=== PATIENT | male | born 1960 | race Caucasian/White ===

== ENCOUNTER 2017-05-30 13:38 | Emergency (ER) | payer OTHER, BC ==
--- NOTE | 2017-05-30 15:23 | RAD ---
Indication: Tender RIGHT mid foot. Question Lisfranc injury or injury at the base of the fifth metatarsal. No preceding injury. Comparison: No relevant prior exams available on the [facility] for comparison. Technique: AP, lateral, and oblique views RIGHT foot. Bilateral foot weightbearing AP view obtained. Report: The RIGHT foot demonstrates normal articular alignment including at the interval between the medial cuneiform and the base of the second metatarsal corresponding with the Lisfranc ligament interval. No cortical disruption or suspicious trabecular irregularity to suggest fracture. No significant arthropathic change evident. Unremarkable soft tissue contours. IMPRESSION: Normal radiographic series of the RIGHT foot including bilateral AP weightbearing views to facilitate assessment for mid foot sprain.
[2017-05-30 15:51] VITALS: BP 150/97
--- NOTE | 2017-05-30 17:41 | UC ---
Lazaro Ceja Alfonso, scribed for Ellen Engle DO on 05/30/17 at 1444 . Lower Extremity/Ankle HPI - HPI Summary HPI Summary: This patient is a 56 year old M presenting to [facility] with a chief complaint of right mid foot pain since a few days ago, worse since waking up this morning. He states it felt like it was strained and its like a bone issue. The patient rates the aching pain 8/10 in severity. Symptoms aggravated by touch and ambulation. Symptoms alleviated by rest. Patient denies recent trauma. 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 He often wears steel toed boots. - History of Current Complaint Chief Complaint: UCLowerExtremity Stated Complaint: FOOT PAIN Time Seen by Provider: 05/30/17 14:37 Hx Obtained From: Patient Onset/Duration: Gradual Onset, Lasting Days - few, Worse Since - morning Severity Currently: Severe Pain Intensity: 8 Pain Scale Used: 0-10 Numeric Aggravating Factor(s): Ambulation, Other - touch Alleviating Factor(s): Rest Able to Bear Weight: Yes - Allergies/Home Medications Allergies/Adverse Reactions: Allergies Allergy/AdvReac Type Severity Reaction Status Date / Time contrast Allergy See Comment Uncoded 05/30/17 13:50 iv iodine Allergy See Comment Uncoded 05/30/17 13:50 PMH/Surg Hx/FS Hx/Imm Hx - Additional Past Medical History Additional PMH: HTN, Arthritis, A-Fib, back pain Previously Healthy: No Cardiovascular History: Hypertension, Atrial Fibrillation - Surgical History Surgical History: None - Family History Known Family History: Positive: Cardiac Disease - CHF father - Social History Alcohol Use: Daily Alcohol Amount: 5-6 Substance Use Type: None Smoking Status (MU): Former Smoker When Did the Patient Quit Smoking/Using Tobacco: 13 YRS AGO Review of Systems Constitutional: Other - Negative fever Musculoskeletal: Other: - right foot pain; negative recent trauma All Other Systems Reviewed And Are Negative: Yes Physical Exam Triage Information Reviewed: Yes Appearance: Well-Appearing, No Pain Distress, Obese Vital Signs: Initial Vital Signs Temp 98.4 F 05/30/17 13:46 Pulse 74 05/30/17 13:46 Resp 18 05/30/17 13:46 BP 159/78 05/30/17 13:46 Pulse Ox 97 05/30/17 13:46 Vital Signs Reviewed: Yes Eyes: Positive: Conjunctiva Clear. Negative: Discharge ENT: Positive: Hearing grossly normal Neck: Positive: Supple, Nontender Respiratory: Positive: Lungs clear, Normal breath sounds, No respiratory distress, No accessory muscle use Cardiovascular: Positive: RRR, No Murmur Abdomen Description: Positive: Nontender, Soft. Negative: Distended, Guarding Bowel Sounds: Positive: Present Musculoskeletal: Positive: Other: - RLE: No edema, calf tenderness, no obvious deformity. Negative for callor and redness. Tenderness over the lisfranc joint and base of 5th metatarsal. Tender with compression of mid foot. Positive Choudhary s squeeze test. Distal neurovascular intact. Psychological Exam: Normal Psychological: Positive: Age Appropriate Behavior Skin Exam: Normal Skin: Positive: Other - Warm, Dry, Normal color Diagnostics - Laboratory Diagnostic Studies Completed/Ordered: Right foot X-Ray reveals, per radiologist , Normal radiographic series of the RIGHT foot including bilateral AP weightbearing views to facilitate assessment for mid foot sprain. [facility] physician has reviewed this radiology report and agrees. Lower Extremity Course/Dx - Course Course Of Treatment: This patient is a 56 year old M presenting to [facility] with a chief complaint of right mid foot pain since a few days ago, worse since waking up this morning. He states it felt like it was strained and its like a bone issue. The patient rates the aching pain 8/10 in severity. Symptoms aggravated by touch and ambulation. Symptoms alleviated by rest. Patient denies recent trauma. 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 He often wears steel toed boots. Spoke with Dr. Moscoso regarding imaging options. Right foot X-Ray reveals, per radiologist, Normal radiographic series of the RIGHT foot including bilateral AP weightbearing views to facilitate assessment for mid foot sprain. [facility] physician has reviewed this radiology report and agrees. 5th metatarsal is not likely in someone with no hx of trauma. However, we are going to go ahead and follow the protocol including camwalker, no weight bearing for one week given the patients ETOH history even though he seems like a good historian. Medications reviewed this visit. The patient has been encouraged to quit drinking so much. Patient will be discharged with follow up from PCP and orthopedics. The patient is agreeable with this plan. - Differential Dx/Diagnosis Differential Diagnosis/HQI/PQRI: Arthritis, Fracture (Closed), Gout, Sprain Provider Diagnoses: high blood pressure, right foot sprain, r/o lin fx Discharge - Discharge Plan Condition: Stable Disposition: HOME Patient Education Materials: Crutch Instructions (ED), Foot Sprain (ED), Suspected Fracture (ED) Forms: *Work Release Referrals: Barbara Rodriguez MD [Medical Doctor] - (follow up in 5-7 days) Jared Osorio MD [Primary Care Provider] - If Needed Additional Instructions: Your history and exam is suspicous for possible occult fracture of the base of the 5th metatarsal. This is a fracture that can have a bad outcome if not properly immobilized. So, we will treat this as a fracture until proven otherwise. That means that you must wear the WALKING BOOT 24 hours a day until the ortho provider tells you otherwise. You should also remain NON-WEIGHT BEARING until told otherwise by the orthopedist, so walking and standing should be done with the help of crutches. It will take 5-7 days to establish whether or not your bone is fractured. FOLLOW UP WITH YOUR PRIMARY CARE PROVIDER WITHIN ONE WEEK FOR HIGH BLOOD PRESSURE NOTED TODAY AT 159/78. The documentation as recorded by the Lazaro gutierrez Alfonso accurately reflects the service I personally performed and the decisions made by , Ellen Engle DO.
== END 2017-05-30 16:00 | disposition home or self-care (01) ==
LOC: UCEAST 13:38
DX: S93.601A Unspecified sprain of right foot, initial encounter (principal); Y92.9 Unspecified place or not applicable; X58.XXXA Exposure to other specified factors, initial encounter; Z91.041 Radiographic dye allergy status; I10 Essential (primary) hypertension; I48.91 Unspecified atrial fibrillation; Z87.891 Personal history of nicotine dependence; E66.9 Obesity, unspecified
CPT/HCPCS: 99213; G0463

== ENCOUNTER 2023-06-10 05:38 | Inpatient (IN) ==
[2023-06-10] MEDS ORDERED: Chlorhexidine MOUTHWASH 0.12% 15 ML UDC ONE (05:47)
[2023-06-10] MEDS ORDERED: ceFAZolin 2 GM in NS PREMIX 2 GM/100 ML BAG IVPB ONE (06:00)
[2023-06-10] MEDS ORDERED: Buffered Lidocaine 1% SYRIN 1 ml INTRADERM ONE (06:00)
[2023-06-10] MEDS ORDERED: Lactated Ringers 1000 ml BAG 1,000 ML IV SCH ×2 (06:00→12:00)
[2023-06-10 06:25] LABS: Rapid COVID-19 Molecular Undetected (Undetected)
[2023-06-10] MEDS ORDERED: Lidocaine 1% w EPI 1:100,000 MDV 20 ML VIAL ONE (06:59)
[2023-06-10] MEDS ORDERED: Thrombin 5,000 UNITS 1 APPLIC KIT - topical use - TOPICAL ONE (06:59)
[2023-06-10] MEDS ORDERED: Gelfoam Sponge SIZE 100 SPONGE ONE (06:59)
[2023-06-10] MEDS ORDERED: ceFAZolin VIAL VIAL ONE (06:59)
[2023-06-10 07:02] LABS: INR 0.97 (0.83-1.13)
[2023-06-10] MEDS ORDERED: Midazolam 5 mg/5 ml VIAL 1 mg/ml 5 ml VIAL (5 mg) ONE (07:15)
[2023-06-10] MEDS ORDERED: fentaNYL 100 mcg/2 ml 50 MCG/ML VIAL ONE ×2 (07:15→08:01)
[2023-06-10] MEDS ORDERED: Rocuronium 50 mg VIAL 10 mg/ml 5 ml VIAL (50 mg) ONE ×2 (07:15→08:48)
[2023-06-10] MEDS ORDERED: Succinylcholine 200 mg VIAL 20 mg/ml 10 ml VIAL (200 mg) ONE (08:18)
[2023-06-10] MEDS ORDERED: Propofol 10 MG/ML 20 ML BTL ONE (08:18)
[2023-06-10] MEDS ORDERED: Ondansetron 4 mg VIAL 2 MG/ML 2 ml VIAL ONE (08:18)
[2023-06-10] MEDS ORDERED: Dexamethasone IV 4 MG/ML VIAL 1 ml VIAL ONE (08:18)
[2023-06-10] MEDS ORDERED: Naloxone 0.4 mg VIAL 0.4 mg/ml 1 ml VIAL IV PRN (08:36)
[2023-06-10] MEDS ORDERED: HYDROmorphone 1 MG/1 ML SYRINGE IV PRN (08:36)
[2023-06-10] MEDS ORDERED: HYDROmorphone 0.5 MG/0.5 ML SYRINGE ONE (10:34)
[2023-06-10] MEDS ORDERED: Senna TAB 8.6 mg TAB PO PRN (11:09)
[2023-06-10] MEDS ORDERED: Morphine 2 MG/ML SYRINGE IV PRN (11:09)
[2023-06-10] MEDS ORDERED: Calcium Carb (TUMS) 500 mg CHEW TAB PO PRN (11:09)
[2023-06-10] MEDS ORDERED: Ondansetron 4 mg VIAL 2 MG/ML 2 ml VIAL IV PRN (11:09)
[2023-06-10] MEDS: HYDROcodone/ACETAMIN 5/325 mg TAB PO PRN ×2 (13:26→17:45)
[2023-06-10] MEDS: Potassium Chlor 20 meq TAB.ER PO SCH (13:28)
[2023-06-10] MEDS ORDERED: Thiamine 100 MG/ML 2 ml VIAL (200 mg) IM ONE (14:10)
[2023-06-10] MEDS ORDERED: Lorazepam PYXIS KEY PRN (14:17)
[2023-06-10] MEDS ORDERED: LORazepam 2 mg VIAL 1 ml IV PUSH SCH (15:00)
[2023-06-10] MEDS: Multivitamins/Minerals TAB PO SCH (17:46)
[2023-06-11] MEDS ORDERED: Benzocaine/Menthol LOZ PO PRN (04:57)
[2023-06-11] MEDS: Cholecalciferol (VIT D3) 1,000 unit TAB PO SCH (09:02)
[2023-06-11] MEDS: Multivitamins/Minerals TAB PO SCH (09:03)
[2023-06-11] MEDS: HYDROcodone/ACETAMIN 5/325 mg TAB PO PRN ×3 (11:20→22:12)
[2023-06-11] MEDS: Potassium Chlor 20 meq TAB.ER PO SCH (11:21)
[2023-06-12] MEDS: Multivitamins/Minerals TAB PO SCH (08:19)
[2023-06-12] MEDS: Cholecalciferol (VIT D3) 1,000 unit TAB PO SCH (08:20)
[2023-06-12] MEDS: HYDROcodone/ACETAMIN 5/325 mg TAB PO PRN (08:24)
[2023-06-12] MEDS: Potassium Chlor 20 meq TAB.ER PO SCH (12:48)
[2023-06-12 14:16] VITALS: BP 113/73
== END 2023-06-12 17:30 | disposition home or self-care (01) | DRG 304 ==
LOC: AA 05:38 → SSU 11:09
PROVIDERS: ADMIT Neurological Surgery; ATTEND Neurological Surgery
PROC: O.NEPLF (2023-06-10 07:30)